=== PATIENT | male | born 1955 | race Caucasian/White ===

== ENCOUNTER → 2023-02-17 | Outpatient (CLI) | payer MEDICARE, OTHER ==
[~2023-02-17] MED LIST: ISOVUE-370 76% 100ML VIAL ONE
== END ==
LOC: M PLAIMG 13:24
PROVIDERS: ATTEND Internal Medicine
DX: R13.10 Dysphagia, unspecified (principal); I25.10 Atherosclerotic heart disease of native coronary artery without angina pectoris; K76.0 Fatty (change of) liver, not elsewhere classified; E11.9 Type 2 diabetes mellitus without complications; R63.4 Abnormal weight loss
CPT/HCPCS: 71270; Q9967

== ENCOUNTER 2023-10-05 09:03 | Observation (INO) | payer MEDICARE, OTHER ==
[~2023-10-05] VITALS: Ht 167.6 cm; Wt 59.9 kg
[2023-10-05 09:55] LABS: BASO # 0.1 10^3/uL (0.0-0.2); BASO % 1.3 % (0.0-1.0); EOS # 0.1 10^3/uL (0.0-0.5); EOS % 1.1 % (0.0-3.0); HEMATOCRIT 30.9 % (42.0-52.0); HEMOGLOBIN 10.4 g/dl (13.5-17.5); LYMPH # 1.8 10^3/uL (1.5-5.0); LYMPH % 25.9 % (24.0-44.0); MEAN CORPUSCULAR HEMOGLOBIN 35.1 pg (27.0-33.0); MEAN CORPUSCULAR HGB CONC 33.7 g/dl (32.0-36.5); MEAN CORPUSCULAR VOLUME 104.4 fl (80.0-96.0); MONO # 0.6 10^3/uL (0.0-0.8); MONO % 8.9 % (2.0-8.0); NEUTROPHILS # 4.4 10^3/uL (1.5-8.5); NEUTROPHILS % 62.7 % (36.0-66.0); PLATELET COUNT, AUTOMATED 208 10^3/uL (150-450); RED BLOOD COUNT 2.96 10^6/uL (4.30-6.10)
[2023-10-05 10:20] LABS: AMYLASE 75 U/L (30-118)
[2023-10-05 10:21] LABS: ALBUMIN 3.2 G/DL (3.2-5.2); ALKALINE PHOSPHATASE 109 U/L (46-116); ALT/SGPT 79 U/L (7.0-40); AST/SGOT 216 U/L (<34); BILIRUBIN,DIRECT 1.8 MG/DL (<0.4); BILIRUBIN,TOTAL 2.7 MG/DL (0.3-1.2); BLOOD UREA NITROGEN 21 MG/DL (9-23); CALCIUM LEVEL 9.5 MG/DL (8.3-10.6); CARBON DIOXIDE LEVEL 28 MMOL/L (20-31); CHLORIDE LEVEL 102 MMOL/L (98-107); CREATININE FOR GFR 0.94 MG/DL (0.70-1.30); GLOMERULAR FILTRATION RATE > 60.0 (>49); GLUCOSE, FASTING 102 MG/DL (74-106); POTASSIUM SERUM 3.5 MMOL/L (3.5-5.1); SODIUM LEVEL 139 MMOL/L (136-145); TOTAL PROTEIN 7.3 G/DL (5.7-8.2)
[2023-10-05] MEDS: NS 1,000 ML IV ONE (15:32)
[2023-10-05] MEDS ORDERED: ISOVUE-370 76% 100ML VIAL As Ordered ONE (15:41)
[2023-10-05] MEDS ORDERED: THERTAB52 PO (15:42)
[2023-10-05] MEDS ORDERED: CARV25TA PO (15:42)
[2023-10-05] MEDS ORDERED: D3 +TAB PO (15:42)
[2023-10-05] MEDS ORDERED: AMLO1TAB25 PO (15:42)
[2023-10-05] MEDS ORDERED: ALLO10TA PO (15:42)
[2023-10-05] MEDS ORDERED: RAMI10CA64 PO (15:42)
[2023-10-05] MEDS ORDERED: PRAZ5CAP PO (15:42)
[2023-10-05] MEDS ORDERED: SILD100T PO (15:42)
[2023-10-05] MEDS ORDERED: E-Z-PAQUE 96% w/w SUSP 176GM BTL As Ordered ONE (15:54)
[2023-10-05] MEDS ORDERED: E-Z-GAS II EFFERVESCENT PACKET (SODIUM BICARB./CITRIC ACID/SIMETHICONE) As Ordered ONE (15:54)
[2023-10-05] MEDS ORDERED: E-Z-HD 98% w/w 340GM SUSP BTL As Ordered ONE (15:54)
[2023-10-05 16:01] LABS: LIPASE 32 U/L (12-53)
[2023-10-05] MEDS ORDERED: PRESCAP4 PO (19:38)
[2023-10-05] MEDS ORDERED: MULT-90 PO (19:38)
[2023-10-05] MEDS ORDERED: VITATAB26 PO (19:38)
[2023-10-05] MEDS ORDERED: PRAZ1CAP PO (19:38)
[2023-10-05] MEDS ORDERED: MAALOX 30 ML SUSP *UDC PO PRN (19:40)
[2023-10-05] MEDS ORDERED: HOME MED LIST COMPLETE! XX SCH (19:40)
[2023-10-05] MEDS ORDERED: MOM 30ML SUSPENSION UDC PO PRN (19:40)
[2023-10-05] MEDS ORDERED: ACETAMINOPHEN TAB 650MG DOSE (2X325MG) PO PRN (19:40)
[2023-10-05] MEDS: NS 1,000 ML IV SCH (20:31)
[2023-10-05 21:49] VITALS: BP 146/86; TEMP 97.3; O2SAT 99
[2023-10-06 04:47] VITALS: BP 152/88; TEMP 97.3; O2SAT 98
[2023-10-06 07:00] LABS: INR 1.14; PARTIAL THROMBOPLASTIN TIME 26.8 SECONDS (24.8-34.2); PROTHROMBIN TIME 14.3 SECONDS (12.5-14.5)
[2023-10-06 07:03] LABS: ALKALINE PHOSPHATASE 105 U/L (46-116); ALT/SGPT 71 U/L (7.0-40); AST/SGOT 155 U/L (<34); BILIRUBIN,TOTAL 2.3 MG/DL (0.3-1.2); BLOOD UREA NITROGEN 18 MG/DL (9-23); CALCIUM LEVEL 8.9 MG/DL (8.3-10.6); CARBON DIOXIDE LEVEL 26 MMOL/L (20-31); CHLORIDE LEVEL 106 MMOL/L (98-107); CREATININE FOR GFR 0.77 MG/DL (0.70-1.30); GLOMERULAR FILTRATION RATE > 60.0 (>49); GLUCOSE, FASTING 90 MG/DL (74-106); POTASSIUM SERUM 3.3 MMOL/L (3.5-5.1); SODIUM LEVEL 142 MMOL/L (136-145); TOTAL PROTEIN 6.8 G/DL (5.7-8.2)
[2023-10-06] MEDS: KCL 10MEQ/100ML SWI (KRUN) 10 MEQ in IV 1 EA IV SCH (08:59)
[2023-10-06] MEDS ORDERED: propofoL 200 MG/20 ML VIAL As Ordered ONE (12:21)
[2023-10-06] MEDS ORDERED: LIDOCAINE 2% 100MG/5ML SDV (FOR ANES.) As Ordered ONE (12:21)
[2023-10-06 13:05] VITALS: TEMP 97.6
[2023-10-06 13:25] VITALS: BP 130/72; O2SAT 93
[2023-10-06] MEDS ORDERED: OMEP1CAP73 PO (16:08)
== END 2023-10-06 17:10 | disposition home or self-care (01) ==
LOC: M ED 09:03 → M ED INP 09:04 → M MSPAV 21:36
PROVIDERS: ADMIT Internal Medicine; ATTEND Internal Medicine
DX: R13.10 Dysphagia, unspecified (principal); I10 Essential (primary) hypertension; E78.5 Hyperlipidemia, unspecified; M10.9 Gout, unspecified; Z79.899 Other long term (current) drug therapy
CPT/HCPCS: 36415; 43239; 43245; 71046; 71260; 74177; 74220; 80048; 80053; 80076; 82150; 83690; 85025; 85610; 85730; 88305; 96361; 96374; 99284; G0378; Q9967

== ENCOUNTER 2024-10-17 11:40 | Inpatient (IN) | payer MEDICARE, OTHER ==
[~2024-10-17] VITALS: Ht 167.6 cm; Wt 62.5 kg
[~2024-10-17 11:40] MED LIST changes: +ALLO10TA PO; +AMLO1TAB25 PO; +CARV25TA PO; +D3 +TAB PO; -ISOVUE-370 76% 100ML VIAL ONE; +MULT-90 PO; +OMEP1CAP73 PO; +PRAZ1CAP PO; +PRAZ5CAP PO; +PRESCAP4 PO; +RAMI10CA64 PO; +SILD100T PO; +THERTAB52 PO; +VITATAB26 PO
[2024-10-17 12:18] LABS: BASO # 0.0 10^3/uL (0.0-0.2); BASO % 0.3 % (0.0-1.0); EOS # 0.0 10^3/uL (0.0-0.5); EOS % 0.1 % (0.0-3.0); LYMPH # 1.4 10^3/uL (1.5-5.0); LYMPH % 12.2 % (24.0-44.0); MONO # 1.0 10^3/uL (0.0-0.8); MONO % 8.4 % (2.0-8.0); NEUTROPHILS # 9.2 10^3/uL (1.5-8.5); NEUTROPHILS % 78.3 % (36.0-66.0); PLATELET COUNT, AUTOMATED 229 10^3/uL (150-450)
[2024-10-17] MEDS: THIAMINE 100 MG TAB PO SCH (12:40)
[2024-10-17] MEDS: MULTIVITAMINS/MINERALS THERAP 1 TAB PO SCH (12:41)
[2024-10-17] MEDS: FOLIC ACID 1 MG TAB PO SCH (12:41)
[2024-10-17 12:51] LABS: ALT/SGPT 24 U/L (7.0-40); AST/SGOT 96 U/L (<34); CALCIUM LEVEL 8.0 MG/DL (8.3-10.6); CARBON DIOXIDE LEVEL 23 MMOL/L (20-31); CHLORIDE LEVEL 97 MMOL/L (98-107); CREATININE FOR GFR 0.71 MG/DL (0.70-1.30); GLOMERULAR FILTRATION RATE > 90.0 (>49); MAGNESIUM LEVEL 0.8 MG/DL (1.8-2.4); POTASSIUM SERUM 3.5 MMOL/L (3.5-5.1); SODIUM LEVEL 138 MMOL/L (136-145)
[2024-10-17] MEDS ORDERED: FINA5TAB2 PO (13:01)
[2024-10-17] MEDS ORDERED: ISOVUE-370 76% 100 ML VIAL As Ordered ONE (13:01)
[2024-10-17 13:04] LABS: INR 1.11
[2024-10-17] MEDS: MAG SULF 1GM/100ML (MAG RUN) 1 GM in IV 1 EA IV ONE ×2 (13:10→14:36)
[2024-10-17 13:27] LABS: VENOUS BASE EXCESS 2.1 (-2.0-2.0); VENOUS HCO3 25.7 MMOL/L (23.0-27.0); VENOUS O2 SATURATION 95.9 % (60.0-80.0); VENOUS PARTIAL PRESSURE CO2 36.4 mmHg (38.0-50.0); VENOUS PARTIAL PRESSURE O2 81.3 mmHg (30.0-50.0); VENOUS PH 7.467 UNITS (7.330-7.430); VENOUS STANDARD HCO3 26.3 MMOL/L; VENOUS TOTAL CO2 26.8 MMOL/L (24.0-28.0)
[2024-10-17] MEDS ORDERED: OMEP1CAP73 PO (14:10)
[2024-10-17] MEDS ORDERED: RAMI5CAP60 PO (14:10)
[2024-10-17] MEDS ORDERED: HOME MED LIST COMPLETE! XX SCH (14:15)
[2024-10-17] MEDS: NS (Normal Saline) 0.9% 1,000 ML IV SCH (16:44)
[2024-10-17 18:01] LABS: C REACTIVE PROTEIN QUANTITATIV 14.33 MG/DL (<1.0)
[2024-10-17 18:43] VITALS: BP 170/100; TEMP 97.4; O2SAT 98
[2024-10-17 18:49] VITALS: BP 170/100
[2024-10-17] MEDS: D5W/0.9% SODIUM CHLORIDE 1,000 ML IV SCH (18:56)
[2024-10-17] MEDS: MAG SULF 1GM/100ML (MAG RUN) 1 GM in IV 1 EA IV SCH (18:57)
[2024-10-17 19:48] VITALS: BP 142/72; TEMP 97.3; O2SAT 97
[2024-10-17] MEDS: PANTOPRAZOLE 40MG VIAL IV SCH (20:36)
[2024-10-17] MEDS: ENOXAPARIN 40 MG/0.4 ML SYRINGE (J1650 PER 10MG) SC SCH (20:36)
[2024-10-17] MEDS ORDERED: THIAMINE 100 MG TAB PO SCH (21:00)
[2024-10-17] MEDS: MULTIVITAMIN -ADULT INJECTION 10 ML, THIAMINE INJection 100 MG, FOLIC ACID 1 MG in NS (... IV ONE (22:58)
[2024-10-18] VITALS (12 sets, daily range): BP systolic 134–174; BP diastolic 62–110; TEMP 96.9–98; O2SAT 85–98
[2024-10-18 05:38] LABS: BASO # 0.0 10^3/uL (0.0-0.2); BASO % 0.5 % (0.0-1.0); EOS # 0.1 10^3/uL (0.0-0.5); EOS % 1.0 % (0.0-3.0); LYMPH # 1.2 10^3/uL (1.5-5.0); LYMPH % 14.9 % (24.0-44.0); MONO # 0.8 10^3/uL (0.0-0.8); MONO % 9.7 % (2.0-8.0); NEUTROPHILS # 5.8 10^3/uL (1.5-8.5); NEUTROPHILS % 73.4 % (36.0-66.0); PLATELET COUNT, AUTOMATED 191 10^3/uL (150-450)
[2024-10-18 06:04] LABS: C REACTIVE PROTEIN QUANTITATIV 9.19 MG/DL (<1.0)
[2024-10-18 06:16] LABS: ALT/SGPT 19 U/L (7.0-40); AST/SGOT 82 U/L (<34); CALCIUM LEVEL 7.2 MG/DL (8.3-10.6); CARBON DIOXIDE LEVEL 27 MMOL/L (20-31); CHLORIDE LEVEL 97 MMOL/L (98-107); CREATININE FOR GFR 0.61 MG/DL (0.70-1.30); GLOMERULAR FILTRATION RATE > 90.0 (>49); MAGNESIUM LEVEL 1.9 MG/DL (1.8-2.4); POTASSIUM SERUM 2.9 MMOL/L (3.5-5.1); SODIUM LEVEL 137 MMOL/L (136-145)
[2024-10-18] MEDS: KCL 10MEQ/100ML SWI (KRUN) 10 MEQ in IV 1 EA IV SCH ×2 (07:00→09:32)
[2024-10-18] MEDS ORDERED: MULTIVITAMINS/MINERALS THERAP 1 TAB PO SCH (09:00)
[2024-10-18] MEDS ORDERED: FOLIC ACID 1 MG TAB PO SCH (09:00)
[2024-10-18] MEDS: KCL 40MEQ IN D5/NS 1000ML 1,000 ML IV SCH (11:15)
[2024-10-18 11:32] LABS: CALCIUM LEVEL 7.4 MG/DL (8.3-10.6); CARBON DIOXIDE LEVEL 24 MMOL/L (20-31); CHLORIDE LEVEL 101 MMOL/L (98-107); CREATININE FOR GFR 0.61 MG/DL (0.70-1.30); GLOMERULAR FILTRATION RATE > 90.0 (>49); POTASSIUM SERUM 3.5 MMOL/L (3.5-5.1); SODIUM LEVEL 137 MMOL/L (136-145)
[2024-10-18] MEDS: hydrALAZINE 20 MG/ML 1 ML VIAL IV PRN (12:44)
[2024-10-18] MEDS ORDERED: MIDAZOLAM INJ 2 MG/2 ML VIAL As Ordered ONE (14:10)
[2024-10-18] MEDS: ALBUTEROL SULFATE 2.5 MG/0.5 ML INH CONCENTRATE NEB SOLN NEB ONE (14:45)
[2024-10-18] MEDS: IPRATROPIUM 0.5 MG/ALBUTEROL 2.5 MG INH SOL UD 3 ML NEB ONE (16:15)
[2024-10-18 17:44] LABS: CALCIUM LEVEL 7.5 MG/DL (8.3-10.6); CARBON DIOXIDE LEVEL 23 MMOL/L (20-31); CHLORIDE LEVEL 104 MMOL/L (98-107); CREATININE FOR GFR 0.64 MG/DL (0.70-1.30); GLOMERULAR FILTRATION RATE > 90.0 (>49); POTASSIUM SERUM 3.6 MMOL/L (3.5-5.1); SODIUM LEVEL 141 MMOL/L (136-145)
== END 2024-10-18 18:07 | disposition home or self-care (01) | DRG 392 ==
LOC: EDBD 11:40 → M ED 11:40 → UNDOADMIN 15:37 → M ED INP 15:37 → M PCU 18:28
PROVIDERS: ADMIT Internal Medicine; ATTEND Internal Medicine
PROC: 0DB58ZX Excision of Esophagus, Via Natural or Artificial Opening Endoscopic, Diagnostic (ICD-10-PCS; 2024-10-18)
PROC: 0D758ZZ Dilation of Esophagus, Via Natural or Artificial Opening Endoscopic (ICD-10-PCS; principal; 2024-10-18 14:00)
DX: K22.4 Dyskinesia of esophagus (principal); E87.3 Alkalosis; E87.4 Mixed disorder of acid-base balance; Q39.6 Congenital diverticulum of esophagus; R13.10 Dysphagia, unspecified; K22.2 Esophageal obstruction; K74.60 Unspecified cirrhosis of liver; I10 Essential (primary) hypertension; F10.10 Alcohol abuse, uncomplicated; K21.9 Gastro-esophageal reflux disease without esophagitis; E83.42 Hypomagnesemia; N40.0 Benign prostatic hyperplasia without lower urinary tract symptoms; Z87.891 Personal history of nicotine dependence; R26.89 Other abnormalities of gait and mobility; E80.6 Other disorders of bilirubin metabolism; R91.8 Other nonspecific abnormal finding of lung field; M10.9 Gout, unspecified; Z79.899 Other long term (current) drug therapy

== ENCOUNTER 2024-11-29 12:39 | Inpatient (IN) | payer MEDICARE, OTHER ==
[~2024-11-29] VITALS: Ht 167.6 cm; Wt 72.7 kg
[~2024-11-29 12:39] MED LIST changes: +FINA5TAB2 PO; +RAMI5CAP60 PO
[2024-11-29] MEDS ORDERED: HOME MED LIST COMPLETE! XX SCH (13:45)
[2024-11-29 14:26] LABS: BASO # 0.0 10^3/uL (0.0-0.2); BASO % 0.7 % (0.0-1.0); EOS # 0.2 10^3/uL (0.0-0.5); EOS % 5.6 % (0.0-3.0); LYMPH # 1.2 10^3/uL (1.5-5.0); LYMPH % 39.9 % (24.0-44.0); MONO # 0.3 10^3/uL (0.0-0.8); MONO % 8.7 % (2.0-8.0); NEUTROPHILS # 1.3 10^3/uL (1.5-8.5); NEUTROPHILS % 45.1 % (36.0-66.0); PLATELET COUNT, AUTOMATED 113 10^3/uL (150-450)
[2024-11-29 14:36] LABS: INR 1.38
[2024-11-29 14:45] LABS: CK-MB VALUE MASS 1.8 NG/ML (<3.6)
[2024-11-29 14:47] LABS: CPK CREATINE PHOSPHOKINASE 19.0 U/L (46-171); MB/CK RELATIVE INDEX 9.47 (< OR =4)
[2024-11-29 15:11] LABS: CK-MB VALUE MASS 1.6 NG/ML (<3.6)
[2024-11-29 15:12] LABS: CPK CREATINE PHOSPHOKINASE < 15 U/L (46-171); MB/CK RELATIVE INDEX 0.00 (< OR =4)
[2024-11-29 15:15] LABS: ALT/SGPT 31.0 U/L (7.0-40); AST/SGOT 73.0 U/L (<34); CALCIUM LEVEL 8.0 MG/DL (8.3-10.6); CARBON DIOXIDE LEVEL 26.0 MMOL/L (20-31); CHLORIDE LEVEL 108.0 MMOL/L (98-107); CREATININE FOR GFR 0.93 MG/DL (0.70-1.30); GLOMERULAR FILTRATION RATE 88.9 (>49); POTASSIUM SERUM 3.7 MMOL/L (3.5-5.1); SODIUM LEVEL 144.0 MMOL/L (136-145)
[2024-11-29] MEDS: PIPERACILLIN/TAZOBACTAM SOD 4.5 GM in DEXTROSE 5% (D5W) ADV/MINI-BAG 50 ML IV ONE (16:06)
[2024-11-29] MEDS: NS 500 ML IV ONE (16:06)
[2024-11-29] MEDS ORDERED: ISOVUE-370 76% 100 ML VIAL As Ordered ONE (16:09)
[2024-11-29 16:25] LABS: KETONE, URINE AUTO RFX NEGATIVE (NEGATIVE); MUCUS, URINE RFX SMALL (NEGATIVE); NITRITE, URINE AUTO RFX NEGATIVE (NEGATIVE); RBC, URINE AUTO RFX TNTC /HPF (0-3); SQUAM EPITHELIAL CELL UR AURFX 0 /HPF (0-6)
[2024-11-29 16:46] LABS: LEUKOCYTE ESTERASE UR AUTO RFX 2+ (NEGATIVE); WBC, URINE AUTO RFX TNTC /HPF (0-3)
[2024-11-29] MEDS: FUROSEMIDE 40 MG/4 ML VIAL IV ONE (20:00)
[2024-11-29 20:15] VITALS: BP 100/66; TEMP 97; O2SAT 99
[2024-11-29] MEDS: FUROSEMIDE injection 100 MG, VIAL 2 BAG 13MM ADAPTER 1 EACH in NS 100 ML IV SCH (21:00)
[2024-11-29 21:30] VITALS: BP 97/66; TEMP 96.9; O2SAT 99
[2024-11-29 21:52] VITALS: BP 116/74; TEMP 96.9; O2SAT 99
[2024-11-29 23:30] VITALS: BP 108/62; TEMP 96.6; O2SAT 99
[2024-11-30] VITALS (20 sets, daily range): BP systolic 99–137; BP diastolic 56–72; TEMP 96.4–97.8; O2SAT 98–100
[2024-11-30] MEDS: PIPERACILLIN/TAZOBACTAM SOD 4.5 GM in DEXTROSE 5% (D5W) ADV/MINI-BAG 50 ML IV SCH (02:00)
[2024-11-30] MEDS: MIDODRINE 5 MG TAB PO SCH (08:56)
[2024-11-30 14:38] LABS: BASO # 0.1 10^3/uL (0.0-0.2); BASO % 1.2 % (0.0-1.0); EOS # 0.3 10^3/uL (0.0-0.5); EOS % 6.0 % (0.0-3.0); LYMPH # 1.3 10^3/uL (1.5-5.0); LYMPH % 30.8 % (24.0-44.0); MONO # 0.5 10^3/uL (0.0-0.8); MONO % 10.7 % (2.0-8.0); NEUTROPHILS # 2.1 10^3/uL (1.5-8.5); NEUTROPHILS % 51.1 % (36.0-66.0); PLATELET COUNT, AUTOMATED 105 10^3/uL (150-450)
[2024-11-30 14:39] LABS: KETONE, URINE AUTO RFX NEGATIVE (NEGATIVE); NITRITE, URINE AUTO RFX NEGATIVE (NEGATIVE); RBC, URINE AUTO RFX 124 /HPF (0-3); SQUAM EPITHELIAL CELL UR AURFX 0 /HPF (0-6)
[2024-11-30 14:41] LABS: LEUKOCYTE ESTERASE UR AUTO RFX TRACE (NEGATIVE); WBC, URINE AUTO RFX 13 /HPF (0-3)
[2024-11-30 15:04] LABS: ALT/SGPT 22.0 U/L (7.0-40); AST/SGOT 53.0 U/L (<34); CALCIUM LEVEL 7.8 MG/DL (8.3-10.6); CARBON DIOXIDE LEVEL 22.0 MMOL/L (20-31); CHLORIDE LEVEL 111.0 MMOL/L (98-107); CREATININE FOR GFR 1.14 MG/DL (0.70-1.30); GLOMERULAR FILTRATION RATE 69.6 (>49); MAGNESIUM LEVEL 1.2 MG/DL (1.8-2.4); POTASSIUM SERUM 3.6 MMOL/L (3.5-5.1); SODIUM LEVEL 145.0 MMOL/L (136-145)
[2024-11-30] MEDS: CALCIUM GLUCONATE 1,000 MG in DEXTROSE 5% (D5W) MINI-BAG PLU 100 ML IV ONE (18:05)
[2024-11-30] MEDS: POTASSIUM CHLORIDE 10MEQ SR TABLET PO ONE (18:21)
[2024-11-30] MEDS: MAG SULF 1GM/100ML (MAG RUN) 1 GM in IV 1 EA IV SCH (19:55)
[2024-12-01] VITALS (14 sets, daily range): BP systolic 108–149; BP diastolic 59–68; TEMP 97.3–98.6; O2SAT 98–100
[2024-12-01 05:41] LABS: BASO # 0.1 10^3/uL (0.0-0.2); BASO % 1.2 % (0.0-1.0); EOS # 0.4 10^3/uL (0.0-0.5); EOS % 8.5 % (0.0-3.0); LYMPH # 1.8 10^3/uL (1.5-5.0); LYMPH % 34.6 % (24.0-44.0); MONO # 0.6 10^3/uL (0.0-0.8); MONO % 11.5 % (2.0-8.0); NEUTROPHILS # 2.2 10^3/uL (1.5-8.5); NEUTROPHILS % 44.0 % (36.0-66.0); PLATELET COUNT, AUTOMATED 149 10^3/uL (150-450)
[2024-12-01 06:08] LABS: ALT/SGPT 23.0 U/L (7.0-40); AST/SGOT 64.0 U/L (<34); CALCIUM LEVEL 8.6 MG/DL (8.3-10.6); CARBON DIOXIDE LEVEL 25.0 MMOL/L (20-31); CHLORIDE LEVEL 108.0 MMOL/L (98-107); CREATININE FOR GFR 1.18 MG/DL (0.70-1.30); GLOMERULAR FILTRATION RATE 66.8 (>49); MAGNESIUM LEVEL 1.5 MG/DL (1.8-2.4); POTASSIUM SERUM 3.8 MMOL/L (3.5-5.1); SODIUM LEVEL 145.0 MMOL/L (136-145)
[2024-12-01] MEDS: MAG SULF 1GM/100ML (MAG RUN) 1 GM in IV 1 EA IV SCH (07:01)
[2024-12-01] MEDS: POTASSIUM CHLORIDE 10MEQ SR TABLET PO ONE ×2 (07:01→14:41)
[2024-12-01] MEDS ORDERED: OMEP-173 PO (11:37)
[2024-12-01] MEDS ORDERED: FINA5TAB2 PO (11:37)
[2024-12-01] MEDS ORDERED: ALLO100T PO (11:37)
[2024-12-01 11:50] LABS: MAGNESIUM LEVEL 2.1 MG/DL (1.8-2.4); POTASSIUM SERUM 3.7 MMOL/L (3.5-5.1)
[2024-12-01] MEDS: FUROSEMIDE 40 MG/4 ML VIAL IV ONE (12:10)
[2024-12-01] MEDS ORDERED: MULT-90 PO (14:00)
[2024-12-01] MEDS ORDERED: PROP10TA56 PO (14:00)
[2024-12-01] MEDS ORDERED: MAGN400T2 PO (14:00)
[2024-12-01] MEDS ORDERED: POTA-151 PO (14:00)
[2024-12-01] MEDS ORDERED: FOLI400T13 PO (14:00)
[2024-12-01] MEDS ORDERED: THIA100TA PO (14:00)
[2024-12-01] MEDS ORDERED: LASI20TA3 PO (14:00)
[2024-12-01] MEDS ORDERED: MIDO10TA3 PO (14:04)
[2024-12-01] MEDS ORDERED: TALK1KIT MC (14:04)
[2024-12-01] MEDS ORDERED: PROPRANOLOL 10 MG TAB PO SCH (21:00)
[2024-12-02] MEDS ORDERED: MAGNESIUM OXIDE 400 MG TAB PO SCH (09:00)
[2024-12-02] MEDS ORDERED: POTASSIUM CHLORIDE 10MEQ SR TABLET PO SCH (09:00)
[2024-12-02] MEDS ORDERED: FUROSEMIDE 20 MG TAB PO SCH (09:00)
== END 2024-12-01 16:48 | disposition home health service (06) | DRG 690 ==
LOC: EDBD 12:39 → M ED 12:39 → M ED INP 18:06 → M PCU 20:13
PROVIDERS: ADMIT General Practice; ATTEND General Practice
PROC: 30233J1 Transfusion of Nonautologous Serum Albumin into Peripheral Vein, Percutaneous Approach (ICD-10-PCS; principal; 2024-11-29)
DX: N39.0 Urinary tract infection, site not specified (principal); D61.818 Other pancytopenia; K70.31 Alcoholic cirrhosis of liver with ascites; E88.09 Other disorders of plasma-protein metabolism, not elsewhere classified; R13.10 Dysphagia, unspecified; R91.8 Other nonspecific abnormal finding of lung field; K22.2 Esophageal obstruction; M10.9 Gout, unspecified; I10 Essential (primary) hypertension; K21.9 Gastro-esophageal reflux disease without esophagitis; N40.0 Benign prostatic hyperplasia without lower urinary tract symptoms; D63.8 Anemia in other chronic diseases classified elsewhere; Z87.891 Personal history of nicotine dependence; Z79.899 Other long term (current) drug therapy